=== PATIENT | female | born 1965 | race American Indian/Alaskan Native ===

== ENCOUNTER 2018-01-31 14:25 | Outpatient (CLI) | payer OTHER ==
--- NOTE | 2018-02-01 12:36 | Magnetic Resonance Report ---
BILATERAL BREAST MRI WITHOUT AND WITH CONTRAST: 01/31/18 14:25:00 CLINICAL: Left breast cancer status post chemotherapy. COMPARISON:01/20/18 and 06/10/17 mammograms.. TECHNIQUE: Axial 1.0-mm T1 without, axial high resolution 2.0-mm T2 and axial 1.0-mm dynamic Vibrant high-resolution postcontrast T1 fat saturation sequences on a 1.5 Theresa magnet. The examination was performed with an 8 channel dedicated Sentinelle breast coil. Post processing with CAD and subtraction was performed on an [employer] workstation. 14.0 cc of Multihance was injected without incident via a right antecubital vein 22-gauge INT for the contrast portion of the exam. Consent was obtained prior to the administration of the contrast. FINDINGS: Right: Minimal background parenchymal enhancement. No mass or suspicious enhancement of the right breast. No suspicious right axillary or right internal mammary lymph nodes. Left: Minimal background parenchymal enhancement. The known retroareolar cancer is an irregular enhancing mass approximately 4.4 cm from the nipple measuring 1.7 x 1.3 x 1.0 cm. It demonstrates heterogeneous enhancement with mixed Headaches, 123% peak enhancement and 10% type III washout. A smaller contiguous slightly more anterior and lateral irregular hypointense mass on T2 measures 1.3 x 1.2 cm and demonstrates no enhancement. No other mass or suspicious enhancement. No suspicious left axillary or left internal mammary lymph nodes. IMPRESSION: 1. A partial response to chemotherapy with a 1.7 x 1.3 x 1.0 cm residual left breast cancer. 2. A second nonenhancing 1.3 x 1.2 cm contiguous left breast mass likely represents an additional component of the original mammographic mass since malignant calcifications span approximately 5 cm on both the original mammogram and on a followup mammogram after treatment. 3. No suspicious lymph nodes. 4. Negative right breast. RIGHT BI-RADS 1 -- Negative LEFT BI-RADS 6 -- Known Cancer
== END 2018-01-31 14:26 | disposition home or self-care (01) ==
LOC: SPVIMAG 14:25
PROVIDERS: ATTEND Surgery
DX: C50.412 Malignant neoplasm of upper-outer quadrant of left female breast (principal)
CPT/HCPCS: A9577; C8908; 77059

== ENCOUNTER 2018-03-16 10:06 | Observation (INO) | payer OTHER ==
[2018-03-16] MEDS ORDERED: ANCEF/STERILE WATER 2 GM/20 ML IV NR (12:00)
[2018-03-16] MEDS: LACTATED RINGERS 1,000 ML IV SCH (12:40)
--- NOTE | 2018-03-16 12:52 | Anesthesia Day of Surgery ---
Anesthesia Day of Surgery - Day of Surgery Patient Examined: Yes Patient H&P Reviewed: Yes Patient is NPO: Yes
[2018-03-16] MEDS ORDERED: ZOFRAN IV PRN ×2 (12:53→16:34)
--- NOTE | 2018-03-16 12:53 | Anesthesia Consultation ---
Anesthesia Consult and Med Hx Date of service: 03/16/18 - Airway Anesthetic Teeth Evaluation: Dentures ROM Head & Neck: Adequate Mental/Hyoid Distance: Adequate Mallampati Class: Class III Intubation Access Assessment: Possibly Difficult - Pulmonary Exam CTA: Yes - Cardiac Exam Cardiac Exam: RRR - Pre-Operative Health Status ASA Pre-Surgery Classification: ASA3 Proposed Anesthetic Plan: General - Pulmonary Hx Asthma: Yes (SEASONAL) - Central Nervous System Hx Psychiatric Problems: No - Hematic Hx Anemia: Yes - Other Systems Hx Alcohol Use: No Hx Substance Use: No Hx Cancer: No
[2018-03-16] MEDS ORDERED: VERSED ONE (13:52)
[2018-03-16] MEDS ORDERED: SUBLIMAZE ONE ×2 (13:52→17:31)
[2018-03-16] MEDS ORDERED: DECADRON ONE ×2 (13:53→17:31)
[2018-03-16] MEDS ORDERED: XYLOCAINE 1% 20 mL ONE (13:53)
--- NOTE | 2018-03-16 15:52 | Operative Report ---
Operative Report Operative Report: Date of Service: March 16, 2018 Preoperative diagnosis: Left breast cancer of the upper outer quadrant Postoperative diagnosis: Same Procedure: Left total mastectomy and SLNB with completion ALND (left modified radical mastectomy) Surgeon: Nolvia Hawley MD Charge Hand: Maribeth Langford DO Anesthesia: General Findings: Left breast clip present within radiograph specimen; 2 SLNs and positive for malignancy on frozen section and proceeded with an ALND Complications: None EBL: Minimal Disposition: Plastic surgery proceeded with left tissue human resources intern placement Indications for operative procedure: This is a 53 year old lady with left breast cancer of the upper outer quadrant, Stage II [id number] Her-2 positive. She recently completed neoadjuvant chemotherapy. Recommendations are to proceed with a left total mastectomy-given multicentric breast cancer and SLNB with possible ALND. Patient wished to proceed with the above procedure. Procedure in detail: Anesthesia placed left pectoral muslce block. Patient was then taken to the operating room. Gen. anesthesia was administered. The left nipple was injected with radioisotope and 1 cc of methylene blue dye with 1 cc of saline. Bilateral breast and axilla were prepped and draped in the normal sterile operative fashion. Timeout was performed. Gamma probe was inserted into the axilla with no uptake noted. Attention was taken towards the left breast. Typical mastectomy markings were made. A skin incision was made with a 10 blade knife and dissection taken down to the subcutaneous tissues. First began raising of the superior flap to the level of the clavicle superiorly and posteriorly to the pectoralis muscle. Followed by raising of the medial flap to the level of the sternum and posteriorly to the pectoralis muscle. Followed by raising of the lateral flap to the level of the latissimus dorsi muscle and taken down posteriorly. The gamma probe was inserted into the axilla with no radioisotope uptake noted. The axillary fascia was opened. Two sentinel lymph nodes were identified that contained methylene blue dye, no other blue nodes were noted. Both lymph nodes were sent to pathology with findings positive for malignancy noted on frozen section, and patient would need an ALND after removal of the breast. Then proceeded with raising of the inferior flap to the level of the inframammary fold taken posterior to the pectoralis muscle. The mastectomy/breast was removed from the pectoralis muscle without incident. The specimen was appropriately marked and sent to radiology with findings of breast clip present and sent to pathology. Hemostasis was obtained with the bovie cautery. Attention was then taken towards the left axilla for ALND. The axillary fascia was opened further. The lattismus dorsi muscle was identified and followed superiorly. Then proceeded with identification of the axillary vein followed by identification of the thoracodorsal bundle and long thoracic nerve. Axillary lymph nodes were then removed from the above boundaries with the aid of the bovie cautery and sweeping-like motion and then sent to pathology. Both nerves were identified and unharmed. Hemostasis was noted. 19 [place] MIRANDA drain was placed. Plastic surgery then proceeded with left tissue human resources intern placement.
[2018-03-16] MEDS ORDERED: DILAUDID IV PRN (15:54)
[2018-03-16] MEDS ORDERED: SODIUM CHLORIDE FLUSH SYRINGE 10 ML IV PRN (16:34)
[2018-03-16] MEDS ORDERED: BENADRYL PO PRN (16:34)
[2018-03-16] MEDS ORDERED: REGLAN PO PRN (16:34)
[2018-03-16] MEDS ORDERED: TYLENOL PO PRN (16:34)
[2018-03-16] MEDS ORDERED: FLEXERIL PO PRN (16:39)
--- NOTE | 2018-03-16 16:41 | Post Operative Note ---
Pre-op diagnosis: left breast cancer Post-op diagnosis: same Findings: left breast defect Procedure: left breast reconstruction with employee benefits coordinator and biologic mesh Anesthesia: GETA Surgeon: WILLIAM JOYNER Estimated blood loss: minimal Pathology: none Condition: stable Disposition: PACU
[2018-03-16] MEDS ORDERED: LACTATED RINGERS 1,000 ML IV SCH (17:00)
[2018-03-16] MEDS ORDERED: ZOFRAN ONE (17:31)
[2018-03-16] MEDS ORDERED: DIPRIVAN 10 MG/ML IV ONE (17:31)
[2018-03-16] MEDS ORDERED: ANCEF ONE (17:52)
[2018-03-16] MEDS ORDERED: NACL 0.9% 1000 ML 1,000 ML ONE (17:52)
[2018-03-16] MEDS ORDERED: BACITRACIN ONE (17:52)
[2018-03-16] MEDS ORDERED: METHYLENE BLUE ONE (17:52)
[2018-03-16] MEDS ORDERED: ZEMURON IV ONE (19:35)
[2018-03-16] MEDS ORDERED: QUELICIN ONE (19:35)
[2018-03-16] MEDS ORDERED: BACITRACIN IR ONE (20:00)
[2018-03-16] MEDS ORDERED: GARAMYCIN IV ONE (20:00)
[2018-03-16] MEDS ORDERED: METHYLENE BLUE IRRIGATION ONE (20:00)
[2018-03-16] MEDS ORDERED: ANCEF IV ONE (20:00)
[2018-03-16] MEDS ORDERED: XYLOCAINE MPF 2% ONE (20:00)
[2018-03-16] MEDS ORDERED: COLACE PO SCH (22:00)
[2018-03-16] MEDS ORDERED: ceFAZolin 1 GM in NACL 0.9% 20 ML IV SCH (22:00)
[2018-03-16] MEDS ORDERED: NEURONTIN PO SCH (22:00)
[2018-03-16] MEDS ORDERED: ANCEF/NS 1 GM/50 ML 1 GM/50 ML BAG IV SCH (22:00)
[2018-03-16] MEDS ORDERED: TORADOL ONE (22:54)
--- NOTE | 2018-03-16 23:09 | Operative Report ---
PREOPERATIVE DIAGNOSIS: Left-sided breast cancer. POSTOPERATIVE DIAGNOSIS: Left-sided breast cancer. PROCEDURE: 1. Left breast reconstruction with tissue visual supervisor, CPT CODE 52938-P. 2. Left breast reconstruction using biological mesh, FlexHD, CPT CODE 31464-C. 3. Application of negative pressure wound VAC device, SARA to left breast for postoperative wound healing, CPT CODE 87225. SURGEON: Joel Erwin MD BONE CRUSHER: None. ANESTHESIA: General. OPERATIVE INDICATIONS: A 53-year-old female with left-sided breast cancer, who presented to my office in referral from Dr. Hawley. The patient was going to undergo a left-sided mastectomy and desired reconstructive options. After lengthy discussion with the patient, she elected to proceed with tissue visual supervisor/implant reconstruction for now until we awaited final pathology and determine postoperative adjuvant therapies. Risks and benefits of surgery were discussed with the patient, she agreed. OPERATIVE DETAILS: After informed consent was obtained, Dr. Hawley brought the patient back to the operating room and did her portion of the procedure including left-sided mastectomy and left-sided axillary lymph node dissection. Preoperative antibiotics had been given prior to induction. A timeout was called to verify name of the patient and the operation being performed as well as the side of the operation when I entered the room. I assessed the defect. There was a large defect at the left chest from the mastectomy with disruption of the inframammary fold. The lateral breast border and space in the axilla from the axillary lymph node dissection. We began the reconstruction by measuring the base width of the chest. I then elevated the pectoralis major muscle creating a subpectoral pocket, released the inferior border. I then took a piece of FlexHD perforated and shaped 11 x 20 cm, serial #[id number], so that to the inframammary border and lateral breast border. I also had to resecure and resize the pocket and recreate the inframammary fold and lateral breast border that have been completely disrupted. This was all done with 2-0 Vicryl sutures. Once that was completed, I took a [employer] ultra high profile tissue visual supervisor with serial #[id number] 650 mL and we placed that in the left subpectoral pocket. All the air was evacuated and then visual supervisor was filled with 250 mL of fluid. The pectoralis major was then sewn to the FlexHD with a running 2-0 Vicryl suture. Additional securement of the axillary contents was performed using 2-0 Vicryl sutures to try to close some of the space. A 15-Bhutanese round Christian drain was left in the axilla, 19-Bhutanese round Christian drain was left in the prepectoral space. The skin was brought together with a 2-0 Vicryl interrupted deep dermal sutures and then a 2-0 Monocryl barbed suture was used to close the skin. A peak of negative pressure wound VAC device was applied to the incision for postoperative healing, was applied to suction and was holding well without leak. The patient tolerated procedure well, was awakened from general anesthesia, transferred to PACU in stable condition. ESTIMATED BLOOD LOSS: Less than 50 mL. COMPLICATIONS: None. SPECIMENS: None. JOB# [id number] TOM/TABATHA
[2018-03-16] MEDS: DILAUDID IV PRN ×3 (23:10→23:30)
[2018-03-16] MEDS ORDERED: DILAUDID ONE (23:30)
[2018-03-16] MEDS ORDERED: LACTATED RINGERS 1,000 ML ONE (23:53)
[2018-03-17] MEDS: PERCOCET 5/325 PO PRN ×2 (01:17→06:48)
[2018-03-17] MEDS ORDERED: AMBIEN PO PRN (02:45)
[2018-03-17] MEDS: LACTATED RINGERS 1,000 ML IV SCH (06:49)
--- NOTE | 2018-03-17 08:31 | Progress Note ---
Assessment and Plan This is a 53 year old lady POD#1 left MRM and tissue ship harbor pilot placement for Stage II left breast cancer of the upper outer quadrant, multicentric breast cancer. 1. Pain well controlled. 2. Left chest incision healing well. 3. OOB to hallway. 4. D/C home this afternoon. Subjective Date of service: 03/17/18 Principal diagnosis: Left breast cancer Interval history: POD#1 left MRM and tissue ship harbor pilot placement Objective - Constitutional Vitals: Vital Signs - 12hr 03/16/18 03/16/18 03/16/18 22:55 23:00 23:05 Temperature 97.0 F L Pulse Rate 67 69 73 Respiratory 16 16 14 Rate Blood Pressure 149/77 147/87 148/78 Blood Pressure [Left] O2 Sat by Pulse 100 100 100 Oximetry 03/16/18 03/16/18 03/16/18 23:10 23:20 23:25 Temperature Pulse Rate 68 70 Respiratory 14 15 15 Rate Blood Pressure 142/80 147/84 Blood Pressure [Left] O2 Sat by Pulse 100 100 Oximetry 03/16/18 03/16/18 03/16/18 23:30 23:40 23:50 Temperature Pulse Rate 73 Respiratory 14 16 14 Rate Blood Pressure 144/80 Blood Pressure [Left] O2 Sat by Pulse 100 Oximetry 03/16/18 03/17/18 03/17/18 23:55 00:00 00:10 Temperature 97.3 F L Pulse Rate 71 69 Respiratory 16 16 16 Rate Blood Pressure 144/81 145/81 Blood Pressure [Left] O2 Sat by Pulse 100 99 Oximetry 03/17/18 03/17/18 03/17/18 00:25 01:00 04:30 Temperature 97.3 F L 98.4 F Pulse Rate 70 68 52 L Respiratory 16 16 20 Rate Blood Pressure 145/75 151/85 Blood Pressure 118/60 [Left] O2 Sat by Pulse 99 94 Oximetry General appearance: Present: no acute distress - EENT Eyes: PERRL, EOM intact ENT: hearing intact, clear oral mucosa Ears: bilateral: normal - Neck Neck: supple, normal ROM - Respiratory Respiratory effort: normal Respiratory: bilateral: CTA - Breasts Breasts: other (left incision with wound vac in place; incisions clean,dry and intact; MIRANDA drains to bulb suction; no hematoma; skin well perfused) - Cardiovascular Rhythm: regular Extremities: no ischemia, pulses intact, pulses symmetrical, No edema, normal temperature, normal color, Full ROM - Gastrointestinal General gastrointestinal: Present: soft, non-tender, non-distended Rectal Exam: deferred - Genitourinary Female genitourinary: deferred - Integumentary Integumentary: clear, warm, dry - Musculoskeletal Musculoskeletal: strength equal bilaterally - Neurologic Neurologic: CNII-XII intact, moves all extremities - Psychiatric Psychiatric: appropriate mood/affect, intact judgment & insight, memory intact, cooperative
[2018-03-17 09:13] VITALS: BP 123/61
--- NOTE | 2018-03-23 12:51 | XRay Report ---
SPECIMEN RADIOGRAPH LEFT BREAST: 03/16/18 10:06:00 CLINICAL: Left mastectomy specimen. FINDINGS: A single radiograph of the whole breast demonstrates a biopsy clip and extensive calcifications. For more detail, please refer to the operative report.
== END 2018-03-17 13:20 | disposition home or self-care (01) ==
LOC: OR 10:06 → OB 16:34
PROVIDERS: ADMIT Plastic Surgery; ATTEND Plastic Surgery
DX: C50.912 Malignant neoplasm of unspecified site of left female breast (principal)
CPT/HCPCS: 19307; 64450; 76098; 78800; 88307; 88331; 96374; 96375; A9541; C1789; G0378; J0330; J0690; J1100; J1170; J1580; J1885; J2250; J2405; J2704; J3010; J7030; J7120; Q4128; Q9968; 88333

== ENCOUNTER 2018-11-30 10:53 | Day surgery (SDC) | payer MEDICAID, OTHER ==
[2018-11-30] MEDS ORDERED: LACTATED RINGERS 1,000 ML IV SCH ×2 (11:02→12:00)
[2018-11-30] MEDS ORDERED: DILAUDID IV PRN (11:54)
[2018-11-30] MEDS ORDERED: VERSED IV NR (12:00)
--- NOTE | 2018-11-30 12:15 | Anesthesia Consultation ---
Anesthesia Consult and Med Hx Date of service: 11/30/18 - Airway Anesthetic Teeth Evaluation: Dentures ROM Head & Neck: Adequate Mental/Hyoid Distance: Adequate Mallampati Class: Class II Intubation Access Assessment: Possibly Difficult - Pulmonary Exam CTA: Yes - Cardiac Exam Cardiac Exam: RRR - Pre-Operative Health Status ASA Pre-Surgery Classification: ASA3 Proposed Anesthetic Plan: General - Pulmonary Hx Smoking: No Hx Asthma: Yes (intermittent; no inhaler use since 08/2018) Hx Respiratory Symptoms: No COPD: No - Cardiovascular System Hx Hypertension: No Hx Heart Attack/AMI: No Hx Percutaneous Transluminal Coronary Angioplasty (PTCA): No Hx Cardia Arrhythmia: No - Central Nervous System Hx Seizures: No CVA: No Hx Psychiatric Problems: No - Endocrine Hx Renal Disease: No Hx Liver Disease: No Hx Insulin Dependent Diabetes: No Hx Non-Insulin Dependent Diabetes: No Hx Thyroid Disease: No - Hematic Hx Anemia: Yes (H/H 11.9/37 as of 11/21/18) - Other Systems Hx Alcohol Use: No Hx Substance Use: No Hx Cancer: Yes (hx breast Ca last dose chemo 10/05/18 (maintenance dose)) Hx Obesity: Yes - Additional Comments Anesthesia Medical History Comments: No hx anesthetic complications.
--- NOTE | 2018-11-30 12:16 | Anesthesia Day of Surgery ---
Anesthesia Day of Surgery - Day of Surgery Patient Examined: Yes Patient H&P Reviewed: Yes Patient is NPO: Yes
[2018-11-30] MEDS ORDERED: ADRENALINE P/F ONE (12:38)
[2018-11-30] MEDS ORDERED: XYLOCAINE 1% 20 mL ONE ×2 (12:38→12:54)
[2018-11-30] MEDS ORDERED: MARCAINE 0.5% INFILTRATI ONE ×2 (12:38→15:13)
[2018-11-30] MEDS ORDERED: ANCEF ONE (12:39)
[2018-11-30] MEDS ORDERED: NACL P/F VIAL (10 ML) 20 ML ONE (12:39)
[2018-11-30] MEDS ORDERED: BACITRACIN ONE (12:39)
[2018-11-30] MEDS ORDERED: GENTAMICIN ONE (12:53)
[2018-11-30] MEDS ORDERED: NACL ONE (12:54)
[2018-11-30] MEDS ORDERED: MARCAINE 0.25% INFILTRATI ONE (12:54)
[2018-11-30] MEDS ORDERED: NACL 0.9% 1000 ML 1,000 ML ONE (13:01)
[2018-11-30] MEDS ORDERED: DIPRIVAN 10 MG/ML IV ONE (13:15)
[2018-11-30] MEDS ORDERED: SUBLIMAZE ONE ×3 (13:15→14:48)
[2018-11-30] MEDS ORDERED: XYLOCAINE MPF 2% ONE (13:16)
[2018-11-30] MEDS ORDERED: DECADRON ONE (13:34)
[2018-11-30] MEDS ORDERED: ANCEF/STERILE WATER 2 GM/20 ML IV NR (14:00)
[2018-11-30] MEDS ORDERED: ZOFRAN ONE (14:26)
--- NOTE | 2018-11-30 14:59 | Post Operative Note ---
Pre-op diagnosis: left breast cancer Post-op diagnosis: same Findings: intact molding and trim installer Procedure: left molding and trim installer to implant exchange, fat transfer Anesthesia: GETA Surgeon: WILLIAM JOYNER Estimated blood loss: minimal Pathology: none Condition: stable Disposition: PACU
[2018-11-30] MEDS ORDERED: DILAUDID ONE (15:00)
[2018-11-30] MEDS ORDERED: ADRENALIN IV ONE (15:13)
[2018-11-30] MEDS ORDERED: NACL 0.9% 1000 ML IR ONE (15:14)
[2018-11-30] MEDS ORDERED: BACITRACIN IR ONE (15:14)
[2018-11-30] MEDS ORDERED: ANCEF IR ONE (15:15)
[2018-11-30] MEDS ORDERED: GENTAMICIN IV ONE (15:16)
[2018-11-30] MEDS ORDERED: NACL 0.9% IR ONE (15:17)
--- NOTE | 2018-11-30 16:06 | Operative Report ---
PREOPERATIVE DIAGNOSIS: Personal history of left breast cancer. POSTOPERATIVE DIAGNOSIS: Personal history of left breast cancer. PROCEDURES: 1. Left tissue metal baler to implant exchange, CPT CODE 04391. 2. Left breast reconstruction using other technique, fat transfer, CPT CODE 34020. 3. Harvesting of fat from lateral axillary roll for breast transfer, CPT CODE 50200. 4. Extensive capsulotomy of the left breast with repositioning inframammary fold, CPT CODE 30697-09 5. application of SARA negative pressure wound VAC device to the left breast for postoperative wound healing, CPT CODE 22067. SURGEON: Joel Erwin MD ACADEMIC GUIDANCE SPECIALIST: None. ANESTHESIA: General. OPERATIVE INDICATIONS: This is a 53-year-old female with a history of left breast cancer, underwent left mastectomy and tissue metal baler reconstruction. She also had postoperative radiation therapy and now presented for an metal baler implant exchange. She had significant asymmetry between the breasts. The left breast had moderate radiation damage with contraction and elevation of the inframammary fold. Plan was going to surgery for metal baler implant exchange with manipulation of the pocket as well as fat transfer for additional volume. DESCRIPTION OF PROCEDURE: With informed consent obtained, the patient was brought to the operating room and placed supine on the operating table. Preoperative antibiotics and general anesthesia was administered. The patient was prepped and draped in a sterile fashion. Timeout was called verifying the name of the patient, operation being performed, side and site of the operation. We began by infiltrating the lateral armpit bra roll area with about 200 mL of tumescent solution and allowed it to sit for 10 minutes for the epinephrine to take effect. We then used the LipVivakorafter harvesting system to harvest fat from the lateral axillary roll area and then closed loop system that then transferred the fat into small IV bag, which we allowed to separate by gravity and then we drained out the excess fluid and used the remainder of the fat for transfer. While that was happening, we went ahead and opened up the left breast, dissected down to the capsule, the capsule from the skin flaps, open the capsule and encountered the metal baler. We then went ahead and perforated the metal baler, deflated it and removed it. I then had to perform extensive capsulotomy in order to expand the pocket in all directions. Also had lower the inframammary fold about 2-3 cm and checkerboard everything in order to expand the pocket and positioned the implant appropriately. This was more than a typical with an metal baler to implant exchange due to the radiation. We then placed a temporary sizer and with the sizer in place, I went ahead and fat grafted the upper pole with approximately 90 mL of fat to fill in the contour irregularities. I then went ahead and removed the sizer, opened up a permanent implant. We used a [place] memory gel extra smooth high profile implant 755 mL with serial [id number] using a Preciado funnel sterile technique. No touch technique. We placed the implant into the pocket after irrigating with triple antibiotic irrigation. We then closed the capsule with 3-0 Vicryl [id number] stitches and then the skin with 3-0 Monocryl deep dermal and then a 3-0 Monocryl V-Loc running subcuticular. I then placed a SARA negative pressure wound VAC device over the incision and closed the access points for the liposuction with a 4-0 plain gut suture. The patient tolerated the procedure well, was awakened from general anesthesia, was placed into a support bra and transferred to the PACU in stable condition. ESTIMATED BLOOD LOSS: Less than 50 mL. COMPLICATIONS: None. SPECIMENS: Left tissue metal baler removed and discarded. JOB# [id number] TOM/TABATHA LIN
--- NOTE | 2018-11-30 16:56 | Post Anesthesia Evaluation ---
- Post Anesthesia Evaluation Patient Participated: Yes Airway Patent: Yes Stable Respiratory Function: Yes Nausea/Vomiting: No Temp > 96.8F: Yes Pain Manageable: Yes Adequeate Hydration: Yes Anesthesia Complications: No
[2018-11-30 19:29] VITALS: BP 145/80
== END 2018-11-30 19:00 | disposition home or self-care (01) ==
LOC: OR 10:53
PROVIDERS: ATTEND Plastic Surgery
DX: Z45.812 Encounter for adjustment or removal of left breast implant (principal); D64.9 Anemia, unspecified; J45.909 Unspecified asthma, uncomplicated; E66.9 Obesity, unspecified; Z68.41 Body mass index [BMI] 40.0-44.9, adult; Z79.899 Other long term (current) drug therapy; Z91.013 Allergy to seafood; Z91.041 Radiographic dye allergy status; Z98.84 Bariatric surgery status; Z90.12 Acquired absence of left breast and nipple; Z90.710 Acquired absence of both cervix and uterus; Z90.49 Acquired absence of other specified parts of digestive tract; Z98.891 History of uterine scar from previous surgery; Z85.3 Personal history of malignant neoplasm of breast; Z92.21 Personal history of antineoplastic chemotherapy; Z98.890 Other specified postprocedural states
CPT/HCPCS: 11970; 19366; C1789; J0171; J0690; J1100; J1170; J1580; J2250; J2405; J2704; J3010; J7030; J7120

== ENCOUNTER 2019-10-05 18:19 | Emergency (ER) | payer OTHER ==
[2019-10-05 20:36] VITALS: BP 153/96
--- NOTE | 2019-10-05 20:42 | Emergency Department Report ---
Chief Complaint: High BP Stated Complaint: HEADACHE Time Seen by Provider: 10/05/19 20:37 - HPI History of Present Illness: 54 y/o female comes in for concern of elevated blood pressure the last 2 months. Came into day to have your her blood pressure check. Patient reports that she has an appointment at 9am tomorrow. - Exam Vital Signs: Vital Signs 10/05/19 19:47 Temperature 97.6 F Pulse Rate 70 Respiratory 20 Rate Blood Pressure 153/96 O2 Sat by Pulse 100 Oximetry MSE screening note: Focused history and physical exam performed. Due to findings the following was ordered: ED Disposition for MSE Disposition: Z- MED SCREENING EXAM-LEFT Condition: Stable
== END 2019-10-05 21:00 | disposition left against medical advice (07) ==
LOC: ED 18:19
DX: R03.0 Elevated blood-pressure reading, without diagnosis of hypertension (principal); Z91.041 Radiographic dye allergy status; Z91.013 Allergy to seafood
CPT/HCPCS: 99282

== ENCOUNTER 2019-10-19 11:12 | Outpatient (CLI) | payer OTHER ==
--- NOTE | 2019-10-19 16:19 | Magnetic Resonance Report ---
BILATERAL BREAST MR WITHOUT AND WITH GADOLINIUM INDICATION: History of left breast cancer status post left mastectomy with chemotherapy in 2018. COMPARISONS: 01/31/2018 MRI and 02/16/2019 right mammogram TECHNIQUE: Axial 1.0 mm T1 without, axial high-resolution 2.0 mm T2 and axial 1.0 mm dynamic vibrant high-resolution postcontrast T1 fat saturation sequences on a 1.5 Theresa magnet. The examination was p erformed with an 8-channel dedicated Sentinelle breast coil. Post-processing with CAD and subtraction was performed on an [employer] workstation. 18.0 cc of MultiHance was injected without incident for the c ontrast portion of the exam. Consent was obtained prior to the administration of the contrast. FINDINGS: RIGHT BREAST: Minimal background parenchymal enhancement. No mass or suspicious enhancement. No suspi cious lymph nodes. LEFT BREAST: Status post mastectomy with implant reconstruction. Intact silicone implant. No mass or suspicious enhancement. No suspicious lymph nodes. IMPRESSION: Negative study status post left mastectomy with implant reconstruction. Recommend routine mammographic screening of the right breast. BI-RADS Category 1: Negative Signer Name: Max Galicia MD Signed: 10/19/2019 4:15 PM Workstation Name: [id number]
== END 2019-10-19 11:13 | disposition home or self-care (01) ==
LOC: SPVIMAG 11:12
PROVIDERS: ATTEND Surgery
DX: R92.8 Other abnormal and inconclusive findings on diagnostic imaging of breast (principal); Z85.3 Personal history of malignant neoplasm of breast
CPT/HCPCS: A9577; C8908; 77049

== ENCOUNTER 2021-02-20 07:09 | Day surgery (SDC) | payer MEDICAID, MEDICARE ==
[2021-02-18 11:15] LABS: Hematocrit 36.7 % (30.3-42.9); Hemoglobin 12.3 gm/dl (10.1-14.3); Mean Corpuscular HGB Conc 33 % (30-34); Mean Corpuscular Volume 97 fl (79-97); Platelet Count 245 K/mm3 (140-440); Red Blood Count 3.78 M/mm3 (3.65-5.03); Red Cell Distribution Width 13.9 % (13.2-15.2)
[2021-02-18 13:14] LABS: Calcium 8.9 mg/dL (8.4-10.2)
[~2021-02-20 07:09] MED LIST: BACTERIOSTATIC SODIUM CHLORIDE 0.9% 30 ML VIAL INFILTRATI ONE; LACTATED RINGERS 1,000 ML IV SCH; LIDOCAINE MPF (2%) 20 MG/1 ML VIAL 5 ML ONE; MIDAZOLAM 2 MG/2 ML INJ IV NR; ceFAZolin/Water 2 GM/20 ML 2 GM/20 ML SYRINGE IV NR
[2021-02-20] MEDS ORDERED: BUPIVACAINE/PF (0.5%) 5 MG/1 ML 10 ML VIAL INFILTRATI ONE ×2 (07:27→08:54)
--- NOTE | 2021-02-20 07:34 | Anesthesia Consultation ---
Anesthesia Consult and Med Hx Date of service: 02/20/21 - Airway Anesthetic Teeth Evaluation: Dentures (upper and lower) ROM Head & Neck: Adequate Mental/Hyoid Distance: Adequate Mallampati Class: Class III Intubation Access Assessment: Possibly Difficult - Pre-Operative Health Status ASA Pre-Surgery Classification: ASA3 Proposed Anesthetic Plan: General - Pulmonary Hx Smoking: No Hx Asthma: Yes (INHALER USED LAST 2020) Hx Respiratory Symptoms: No COPD: No Hx Pneumonia: Yes (2019, followed by COVID-19 ) Hx Sleep Apnea: No (HIGH RISK ON KIRSTIN PRESCREEN) - Cardiovascular System Hx Hypertension: Yes Hx Heart Attack/AMI: No Hx Percutaneous Transluminal Coronary Angioplasty (PTCA): No Hx Cardia Arrhythmia: No Hx Pacemaker: No Hx Internal Defibrillator: No - Central Nervous System Hx Neuromuscular Disorder: Yes (tremores) Hx Seizures: No CVA: No Hx Back Pain: No Hx Psychiatric Problems: Yes (anxiety) - Endocrine Hx Renal Disease: No Hx End Stage Renal Disease: No Hx Cirrhosis: No Hx Liver Disease: No Hx Insulin Dependent Diabetes: No Hx Non-Insulin Dependent Diabetes: No Hx Thyroid Disease: No - Hematic Hx Anemia: Yes Hx Sickle Cell Disease: No - Other Systems Hx Alcohol Use: No Hx Substance Use: No Hx Cancer: Yes (hx Left breast Ca last dose chemo 10/05/18 (maintenance dose)) Hx Obesity: Yes (BMI 39.6)
--- NOTE | 2021-02-20 07:34 | Anesthesia Day of Surgery ---
Anesthesia Day of Surgery - Day of Surgery Patient Examined: Yes Patient H&P Reviewed: Yes Patient is NPO: Yes
[2021-02-20] MEDS ORDERED: HYDROmorphone 1 MG/1 ML INJ IV PRN (07:47)
[2021-02-20] MEDS ORDERED: ONDANSETRON 4 MG/2 ML INJ IV PRN (07:47)
[2021-02-20] MEDS ORDERED: HYDROcodone/ACETAMINOPHEN 5-325 MG TAB PO PRN (07:47)
[2021-02-20] MEDS ORDERED: propofoL 200 MG/20 ML VIAL IV ONE ×3 (07:49→08:41)
[2021-02-20] MEDS ORDERED: fentaNYL 100 MCG/2 ML INJ ONE (08:18)
[2021-02-20] MEDS ORDERED: SODIUM CHLORIDE 0.9% IRR 1,500 ML BOTTLE IR ONE (08:54)
[2021-02-20] MEDS ORDERED: HYDROmorphone 1 MG/1 ML INJ ONE (08:57)
--- NOTE | 2021-02-20 09:22 | Procedure Note ---
Date of procedure: 02/20/21 Pre-op diagnosis: Right carpal tunnel syndrome Post-op diagnosis: same Procedure: Right endoscopic carpal tunnel release Procedure The patient was brought to the OR placed in the OR table in supine position following induction and intubation anesthesia the patient's right upper extremity was prepped and draped in the usual sterile manner a timeout procedure was done to identify the patient and the correct operative site next the arm was exsanguinated followed by inflation of the pneumatic tourniquet to 250 mmHg a volar incision was made at the distal wrist crease this is taken down through skin and subcutaneous using loupe magnification the superficial flexor sheath was identified next the carpal canal was entered using dilators andthe arthroscope was inserted the patient was noted to have some tightness at the carpal canal and the transverse carpal transverse carpal ligament was identified with the arthroscope in line with the fourth metacarpal the knife blade assembly was elevated the ligament was released from distal to proximal care was taken to release the ligament as completely as possible a second look was done and it appeared that the ligament was completely released at this point The wound was irrigated and was closed in a standard routine fashion. Dressings were applied the patient tolerated the procedure there were no complications she was sent to postanesthesia recovery in stable condition Anesthesia: MAC Surgeon: ANNA BAEZ (Tammi Will, 1st assist) Estimated blood loss: minimal Pathology: none Condition: stable Disposition: PACU
[2021-02-20 09:59] VITALS: BP 150/64
== END 2021-02-20 10:40 | disposition home or self-care (01) ==
LOC: OR 07:09
PROVIDERS: ATTEND Orthopaedic Surgery
DX: G56.01 Carpal tunnel syndrome, right upper limb (principal); Z20.822 Contact with and (suspected) exposure to COVID-19; I10 Essential (primary) hypertension; J45.909 Unspecified asthma, uncomplicated; E66.9 Obesity, unspecified; K21.9 Gastro-esophageal reflux disease without esophagitis; M19.90 Unspecified osteoarthritis, unspecified site; F41.9 Anxiety disorder, unspecified; Z91.041 Radiographic dye allergy status; Z91.013 Allergy to seafood; Z79.899 Other long term (current) drug therapy; Z87.01 Personal history of pneumonia (recurrent); Z90.49 Acquired absence of other specified parts of digestive tract; Z90.12 Acquired absence of left breast and nipple; Z98.890 Other specified postprocedural states; Z86.2 Personal history of diseases of the blood and blood-forming organs and certain disorders involving the immune mechanism
CPT/HCPCS: 29848; 36415; 80048; 85027; J0690; J1170; J2250; J2704; J3010; J7120; U0003

== ENCOUNTER 2021-04-16 09:10 | Outpatient (CLI) | payer MEDICAID ==
--- NOTE | 2021-04-16 10:48 | Mammography Report ---
DIGITAL SCREENING MAMMOGRAM WITH CAD, 04/16/2021 CLINICAL INFORMATION / INDICATION: Routine screening mammography. SCREENING MAMMO RT Z12.31 TECHNIQUE: Digital right 2D mammography was obtained in the craniocaudal and mediolateral oblique pr ojections. This examination was interpreted with the benefit of Computer-Aided Detection analysis. COMPARISON: Prior mammograms 04/11/2020 and 02/16/2019 FINDINGS: Breast Density: The breasts are almost entirely fatty. No dominant mass, suspicious calcifications, or architectural distortion in the right breast. There is stable benign post reduction change in the right breast. There has been no significant blanco e compared with the prior examinations. IMPRESSION: No mammographic evidence of malignancy. Follow up recommendation: Routine yearly BI-RADS Category 2: Benign. A "normal" or negative report should not discourage follow up or biopsy of a clinically significant f inding. A written summary of these findings will be mailed to the patient. The patient will be entered into a mammography reporting system which will generate a reminder letter for the patient's next appointmen t at the appropriate interval. The [employer] recommends yearly mammograms starting at age 40 and continuing as l santosh as a woman is in good health. Breast MRI is recommended for women with an approximate 20-25% or greater lifetime risk of breast cancer, including women with a strong family history of breast or ova anish cancer or who have been treated for Hodgkin's disease. Signer Name: Maria Dolores Collins MD Signed: 04/16/2021 10:43 AM Workstation Name: [id number]
== END 2021-04-16 09:11 | disposition home or self-care (01) ==
LOC: SPVWC 09:10
PROVIDERS: ATTEND Surgery
DX: Z12.31 Encounter for screening mammogram for malignant neoplasm of breast (principal)

== ENCOUNTER 2021-04-24 10:47 | Emergency (ER) | payer MEDICAID ==
[2021-04-24 10:58] VITALS: BP 145/72
[2021-04-24] MEDS ORDERED: ASPIRIN 325 MG TAB PO ONE (10:58)
--- NOTE | 2021-04-26 09:44 | Electrocardiograph Report ---
[facility] Test Date: 2021-04-24 Test Time: 11:01:29 Pat Name: WALLY PÉREZ Department: Room: Gender: F Subscription Agent: KENNEDY : 1965 Requested By: ED DOC Order Number: [id number] Reading MD: Rik Galaviz Measurements Intervals [place] Rate: 63 P: 45 UT: 161 QRS: 47 QRSD: 74 T: 50 QT: 429 QTc: 430 Interpretive Statements Sinus rhythm Atrial premature complex nonspecific st-t No previous ECG available for comparison Electronically Signed On 04-26-2021 9:43:55 EDT by Rik Galaviz
== END 2021-04-24 12:15 | disposition left against medical advice (07) ==
LOC: ED 10:47
DX: R07.89 Other chest pain (principal); Z53.21 Procedure and treatment not carried out due to patient leaving prior to being seen by health care provider
CPT/HCPCS: 93005

== ENCOUNTER 2021-05-22 08:37 | Day surgery (SDC) | payer MEDICAID, MEDICARE ==
[~2021-05-22 08:37] MED LIST changes: -BACTERIOSTATIC SODIUM CHLORIDE 0.9% 30 ML VIAL INFILTRATI ONE; -LACTATED RINGERS 1,000 ML IV SCH; -LIDOCAINE MPF (2%) 20 MG/1 ML VIAL 5 ML ONE; -MIDAZOLAM 2 MG/2 ML INJ IV NR; +ceFAZolin/STERILE WATER 2 GM/20 ML SYRINGE IV NR; -ceFAZolin/Water 2 GM/20 ML 2 GM/20 ML SYRINGE IV NR
[2021-05-22] MEDS ORDERED: ceFAZolin/STERILE WATER 2 GM/20 ML SYRINGE IV NR (10:00)
--- NOTE | 2021-05-22 10:02 | Anesthesia Day of Surgery ---
Anesthesia Day of Surgery - Day of Surgery Patient Examined: Yes Patient H&P Reviewed: Yes Patient is NPO: Yes
--- NOTE | 2021-05-22 10:04 | Anesthesia Consultation ---
Anesthesia Consult and Med Hx Date of service: 05/22/21 - Airway Anesthetic Teeth Evaluation: Dentures, Edentulous ROM Head & Neck: Adequate Mental/Hyoid Distance: Adequate Mallampati Class: Class II Intubation Access Assessment: Good - Pre-Operative Health Status ASA Pre-Surgery Classification: ASA3 Proposed Anesthetic Plan: MAC (GA if needed) - Pulmonary Hx Smoking: No Hx Asthma: Yes (INHALER PRN) Hx Respiratory Symptoms: No COPD: No Hx Pneumonia: Yes (09/2020- RESOLVED) Hx Sleep Apnea: No (KIRSTIN PRE SCREEN HIGH RISK) - Cardiovascular System Hx Hypertension: Yes (X 2 YRS) Hx Heart Attack/AMI: No Hx Percutaneous Transluminal Coronary Angioplasty (PTCA): No Hx Cardia Arrhythmia: No Hx Pacemaker: No Hx Internal Defibrillator: No - Central Nervous System Hx Neuromuscular Disorder: Yes (tremors) Hx Seizures: No CVA: No Hx Back Pain: No Hx Psychiatric Problems: Yes (anxiety) - Endocrine Hx Renal Disease: No Hx End Stage Renal Disease: No Hx Cirrhosis: No Hx Liver Disease: No Hx Insulin Dependent Diabetes: No Hx Non-Insulin Dependent Diabetes: No Hx Thyroid Disease: No - Hematic Hx Anemia: Yes (NOT RECENT / HAD WITH CHEMO) Hx Sickle Cell Disease: No - Other Systems Hx Alcohol Use: No Hx Substance Use: No Hx Cancer: Yes (Breast) Hx Obesity: Yes (BMI 39.6) - Additional Comments Anesthesia Medical History Comments: Was here [id number] for right CTR. Has lymphedema LUE
[2021-05-22] MEDS ORDERED: LACTATED RINGERS 1,000 ML ONE (10:07)
[2021-05-22] MEDS ORDERED: MIDAZOLAM 2 MG/2 ML INJ ONE ×2 (10:08→10:40)
[2021-05-22] MEDS ORDERED: BUPIVACAINE/PF (0.5%) 5 MG/1 ML 10 ML VIAL INFILTRATI ONE ×3 (10:25→11:32)
[2021-05-22] MEDS ORDERED: HYDROmorphone 1 MG/1 ML INJ IV PRN (10:30)
[2021-05-22] MEDS ORDERED: ONDANSETRON 4 MG/2 ML INJ IV PRN (10:30)
[2021-05-22] MEDS ORDERED: LACTATED RINGERS 1,000 ML IV SCH (10:30)
[2021-05-22] MEDS ORDERED: propofoL 200 MG/20 ML VIAL IV ONE ×3 (10:36→11:40)
[2021-05-22] MEDS ORDERED: LIDOCAINE PF 100 MG/5 ML (CARDIAC SYRINGE) IV ONE (10:36)
[2021-05-22] MEDS ORDERED: hydrALAZINE 20 MG/1 ML INJ ONE ×2 (10:58→12:36)
[2021-05-22] MEDS ORDERED: MIDAZOLAM 2 MG/2 ML INJ IV NR (11:00)
[2021-05-22] MEDS ORDERED: fentaNYL 100 MCG/2 ML INJ ONE (11:12)
[2021-05-22] MEDS ORDERED: SODIUM CHLORIDE 0.9% IRR 1,000 ML BOTTLE IR ONE (11:32)
--- NOTE | 2021-05-22 12:00 | Procedure Note ---
Date of procedure: 05/22/21 Pre-op diagnosis: Left carpal tunnel syndrome Post-op diagnosis: same Procedure: [Left] endoscopic carpal tunnel release Procedure The patient was brought to the OR placed in the OR table in supine position following induction and intubation anesthesia the patient's [left] upper extremity was prepped and draped in the usual sterile manner a timeout procedure was done to identify the patient and the correct operative site next the arm was exsanguinated followed by inflation of the pneumatic tourniquet to 250 mmHg a volar incision was made at the distal wrist crease this is taken down through skin and subcutaneous using loupe magnification the superficial flexor sheath was identified next the carpal canal was entered using dilators andthe arthroscope was inserted the patient was noted to have some tightness at the carpal canal and the transverse carpal transverse carpal ligament was identified with the arthroscope in line with the fourth metacarpal the knife blade assembly was elevated the ligament was released from distal to proximal care was taken to release the ligament as completely as possible a second look was done and it appeared that the ligament was completely released at this point The wound was irrigated and was closed in a standard routine fashion. Dressings were applied the patient tolerated the procedure there were no complications she was sent to postanesthesia recovery in stable condition Anesthesia: MAC Surgeon: ANNA BAEZ (Ivory Marin, 1st assist) Estimated blood loss: minimal Pathology: none Condition: stable Disposition: PACU
[2021-05-22] MEDS: HYDROmorphone 1 MG/1 ML INJ IV PRN ×2 (12:05→12:15)
--- NOTE | 2021-05-22 12:18 | Post Anesthesia Evaluation ---
- Post Anesthesia Evaluation Patient Participated: Yes Airway Patent: Yes Stable Respiratory Function: Yes Nausea/Vomiting: No Temp > 96.8F: Yes Pain Manageable: Yes Adequeate Hydration: Yes Anesthesia Complications: No Block Receding Appropriately: Not Applicable Patient on Ventilator: No
[2021-05-22] MEDS ORDERED: hydrALAZINE 20 MG/1 ML INJ IV ONE (12:45)
[2021-05-22 15:48] VITALS: BP 155/64
== END 2021-05-22 14:05 | disposition home or self-care (01) ==
LOC: OR 08:37
PROVIDERS: ATTEND Orthopaedic Surgery
DX: G56.02 Carpal tunnel syndrome, left upper limb (principal); J45.909 Unspecified asthma, uncomplicated; I10 Essential (primary) hypertension; E66.9 Obesity, unspecified; K21.9 Gastro-esophageal reflux disease without esophagitis; M19.90 Unspecified osteoarthritis, unspecified site; F41.9 Anxiety disorder, unspecified; Z79.899 Other long term (current) drug therapy; Z90.49 Acquired absence of other specified parts of digestive tract; Z98.890 Other specified postprocedural states; Z91.041 Radiographic dye allergy status; Z91.013 Allergy to seafood
CPT/HCPCS: 29848; J0360; J0690; J1170; J2001; J2250; J2405; J2704; J3010; J7120

== ENCOUNTER 2022-05-24 10:59 | Emergency (ER) | payer MEDICAID ==
[2022-05-24 11:52] VITALS: BP 182/84
[2022-05-24 12:50] LABS: Basophils % (Auto) 0.2 % (0.0-1.8); Eosinophils # (Auto) 0.1 K/mm3 (0.0-0.4); Eosinophils % (Auto) 1.7 % (0.0-4.3); Hematocrit 41.7 % (30.3-42.9); Hemoglobin 13.5 gm/dl (10.1-14.3); Lymphocytes # (Auto) 1.2 K/mm3 (1.2-5.4); Lymphocytes % (Auto) 22.2 % (13.4-35.0); Mean Corpuscular HGB Conc 32 % (30-34); Mean Corpuscular Volume 96 fl (79-97); Monocytes # (Auto) 0.5 K/mm3 (0.0-0.8); Monocytes % (Auto) 8.8 % (0.0-7.3); Platelet Count 219 K/mm3 (140-440); Red Blood Count 4.36 M/mm3 (3.65-5.03); Red Cell Distribution Width 13.6 % (13.2-15.2)
[2022-05-24 13:00] LABS: INR 0.97 (0.87-1.13)
[2022-05-24 13:01] LABS: Partial Thromboplastin Time 32.2 Sec. (24.2-36.6)
[2022-05-24 13:10] LABS: BUN/Creatinine Ratio 17; Blood Urea Nitrogen 34 mg/dL (7-17); Calcium 8.7 mg/dL (8.4-10.2); Hemolysis Index 3
--- NOTE | 2022-05-24 13:28 | Cat Scan Report ---
Examination: CT of the head without contrast Clinical information: History of neurological deficits less than 6 hours ago. Comparison: No relevant prior studies are available for comparison. Technical: Multiple axial CT images of the head were obtained without intravenous contrast. Sagittal and coronal reformats were obtained. All CTs at this facility utilize dose reduction techniques inc luding automated exposure control, iterative reconstruction and weight based dosing when appropriate to reduce patient radiation dose to as low as reasonable achievable. Findings: INTRACRANIAL CONTENTS: There is no CT evidence of acute intracranial hemorrhage or large territorial infarct. The ventricular system is normal in size. There is no mass effect or midline shift. SKULL: No acute bony abnormality is visualized. ORBITS: The bilateral orbits and globes appear normal PARANASAL SINUSES / MASTOID AIR CELLS: Paranasal sinuses and mastoid air cells appear clear. Impression: 1. No CT evidence of acute intracranial process. If there is persistent clinical concern for an acu te neurological event then an MRI of the brain may be helpful for additional evaluation. Signer Name: Emily Gregorio MD Signed: 05/24/2022 1:24 PM Workstation Name: [id number]
--- NOTE | 2022-05-25 09:48 | Electrocardiograph Report ---
[facility] Test Date: 2022-05-24 Test Time: 12:01:56 Pat Name: WALLY PÉREZ Department: Room: Gender: F [employer] Heater Installer: ED : 1965 Requested By: ED DOC Order Number: [id number] Reading MD: Feliciano Akers Measurements Intervals [place] Rate: 58 P: 20 MS: 154 QRS: 56 QRSD: 75 T: 67 QT: 478 QTc: 471 Interpretive Statements Sinus rhythm Compared to ECG 04/24/2021 11:01:29 Atrial premature complex(es) no longer present Electronically Signed On 05-25-2022 9:47:43 EDT by Feliciano Akers
== END 2022-05-24 18:54 | disposition left against medical advice (07) ==
LOC: ED 10:59
DX: M25.559 Pain in unspecified hip (principal); M79.606 Pain in leg, unspecified; Z53.21 Procedure and treatment not carried out due to patient leaving prior to being seen by health care provider; W19.XXXA Unspecified fall, initial encounter; Y93.89 Activity, other specified; Y92.89 Other specified places as the place of occurrence of the external cause; Y99.8 Other external cause status
CPT/HCPCS: 36415; 70450; 80048; 84484; 85025; 85610; 85670; 85730; 93005